=== PATIENT | male | born 1950 | race Caucasian/White ===

== ENCOUNTER 2019-06-13 09:07 | Emergency (ER) | payer OTHER, MEDICAID ==
[~2019-06-13] VITALS: Ht 182.9 cm; Wt 81.6 kg
[2019-06-13 09:22] VITALS: BP 154/75
[2019-06-13] MEDS ORDERED: methylPREDNISolone SOD SUCC 125 MG/2 ML VL IM ONE (10:30)
== END 2019-06-13 10:55 | disposition home or self-care (01) ==
LOC: ER 09:07
DX: L23.9 Allergic contact dermatitis, unspecified cause (principal)
CPT/HCPCS: 96372; 99283; J2930

== ENCOUNTER 2019-09-07 05:51 | Emergency (ER) | payer OTHER, MEDICAID ==
[~2019-09-07] VITALS: Ht 182.9 cm; Wt 81.6 kg
[2019-09-07] MEDS ORDERED: LORATADINE 10 MG TAB PO ONE (07:30)
[2019-09-07] MEDS ORDERED: cefTRIAXone SOD 1,000 MG VL IM ONE (07:30)
[2019-09-07] MEDS ORDERED: methylPREDNISolone SOD SUCC 125 MG/2 ML VL IM ONE (07:30)
[2019-09-07] MEDS ORDERED: LIDOCAINE 1% HCL (LOCAL ANESTH.) INJ 20ML MDV ONE (07:53)
[2019-09-07 09:35] VITALS: BP 164/98
== END 2019-09-07 08:27 | disposition home or self-care (01) ==
LOC: ER 05:51
DX: L23.9 Allergic contact dermatitis, unspecified cause (principal); M79.642 Pain in left hand; M79.641 Pain in right hand; R21 Rash and other nonspecific skin eruption
CPT/HCPCS: 96372; 99284; J0696; J2001; J2930